=== PATIENT | male | born 1985 | race Caucasian/White ===

== ENCOUNTER 2017-01-10 15:45 | Emergency (ER) | payer SELFPAY ==
[~2017-01-10] VITALS: Ht 180.3 cm; Wt 85.4 kg
[2017-01-10 15:47] VITALS: BP 128/86
[2017-01-10] MEDS ORDERED: HYDROcodone/APAP 5/325 TABLET ONE (16:09)
[2017-01-10] MEDS ORDERED: HYDROcodone/APAP 5/325 TABLET PO STA (16:12)
== END 2017-01-10 17:14 | disposition home or self-care (01) ==
LOC: ED 16:13
DX: S43.52XA Sprain of left acromioclavicular joint, initial encounter (principal); S40.012A Contusion of left shoulder, initial encounter; F17.210 Nicotine dependence, cigarettes, uncomplicated; V29.3XXA Motorcycle rider (driver) (passenger) injured in unspecified nontraffic accident, initial encounter; Y93.89 Activity, other specified; Y92.89 Other specified places as the place of occurrence of the external cause; Y99.9 Unspecified external cause status
CPT/HCPCS: 72050; 99284